=== PATIENT | male | born 1950 | race Caucasian/White ===

== ENCOUNTER 2024-05-14 12:28 | Outpatient (CLI) | payer BC ==
[~2024-05-14 12:28] MED LIST: Iopamidol 370 76% 100 ML VIAL ONE
== END 2024-05-14 12:29 | disposition home or self-care (01) ==
LOC: CT 12:28
PROVIDERS: ATTEND Family Medicine
DX: R10.32 Left lower quadrant pain (principal); N21.0 Calculus in bladder; N20.0 Calculus of kidney; K86.2 Cyst of pancreas; N28.1 Cyst of kidney, acquired; K80.20 Calculus of gallbladder without cholecystitis without obstruction; K82.8 Other specified diseases of gallbladder; K57.30 Diverticulosis of large intestine without perforation or abscess without bleeding
CPT/HCPCS: 36415; 74177; 82565